=== PATIENT | male | born 1985 | race Two or more races ===

== ENCOUNTER 2023-09-13 09:25 | Outpatient (CLI) | payer OTHER, SELFPAY | END 2023-09-13 09:26 | disposition home or self-care (01) | LOC: ANHSURGERY 09:30 | PROVIDERS: PCP Emergency Medicine; Visit Provider Surgery | DX: K40.90 Unilateral inguinal hernia, without obstruction or gangrene, not specified as recurrent (principal); Z01.818 Encounter for other preprocedural examination | CPT/HCPCS: 36415; 86850; 86900; 86901 ==

== ENCOUNTER 2023-09-21 01:33 | Day surgery (SDC) | payer OTHER, SELFPAY ==
[2023-09-08 17:04] VITALS: BMI 25.5
--- NOTE | 2023-09-08 17:06 | PC.NURSE ---
Report to the Outpatient Waiting Room, entrance under the green pavilion located off [facility], at time _0600_ on date _[id number]_. Planned Procedure Time: _0730_. Time changes happen often and if your time is changed the preop area will call you the afternoon before. - You and your visitor will be asked to self-screen and do not enter if you have any COVID symptoms. - A mask is optional within the hospital at this time. Patients may have clear liquids (water, carbonated beverages, clear teas, apple juice) until 3 hours prior to surgery with a maximum of 20 ounces. - No food from midnight until time of surgery Take the following medications with a SIP of water the morning of surgery: ___None DO NOT STOP ANY OF YOUR OTHER PRESCRIPTION MEDICATIONS PRIOR TO SURGERY ?EXCEPT THE FOLLOWING Medications to discontinue per physician None Date to take last dose Please no make-up, nail nicaraguan, hairspray, perfume, deodorant, or body powder the day of surgery. No jewelry (including any body piercings) or valuables the day of surgery, leave them at home. Please take a shower or bath the night before, or the morning of, surgery with an antibacterial soap. Wear comfortable, loose fitting clothing. - Jewelry must be removed prior to entering the operating room. Rings and piercings that are not removed may be cut off. - The hospital will not accept responsibility for valuables. - Please leave all valuables, including medications, at home the day of surgery. If you are going home after surgery, a licensed bicycle taxi driver must drive you home. - NO public transportation without another adult if you receive anesthesia. - We recommend that an adult stay with you for 24 hours following discharge. - We also recommend that you do not drive, make important decision, drink alcoholic beverages, or take any drugs that were not prescribed by your health care provider for at least 24 hours after your discharge time. Follow any additional instructions given to you from your surgeon. If you or anyone in your household have experienced Covid symptoms in the past week, please notify your surgeon or the nurse liaison at the phone number below for possible testing. Telephone instructions given to _Ryan__and asked if any additional questions and then verbalized understanding. Patient advised to call surgeon office or pre surgery nurse liaison [phone] if any additional questions.
--- NOTE | 2023-09-20 08:41 | PM.SD2 ---
Same Day Admit/Disch: HPI History of Present Illness Chief complaint: Right Ing Hernia Narrative: Petros Braga is a 38 year old male who has had a laparoscopic left inguinal hernia repair years ago. About 2 years ago he started noticing bulge in the right groin. It has gradually gotten bigger and is painful with standing and sometimes with exertion. He was seen in the office and found to have a reducible right inguinal hernia. There was no evidence of a left inguinal hernia. After discussion, he is taken to surgery now for robotic laparoscopic right inguinal hernia repair with mesh. [facility] Past Medical History Medical History Anxiety and depression Surgical History Surgical History Hx of hernia repair laparoscopic left inguinal hernia repair Hx of tonsillectomy Family History Family History Father Thyroid condition Grandparent Hypertension Social History Social History Smoking status: Never smoker Alcohol intake: current Alcohol use details: rarely Living arrangements: with family Occupation/Education: occupation Additional occupation/education comments: Teacher Spiritual care concerns: No Same Day Admit/Disch: Med Pre-admit Medications Home Medications Medication Instructions Recorded Confirmed Type fluticasone propionate 50 1 spray intranasal DAILY 06/30/23 09/08/23 History mcg/actuation nasal spray,suspension loratadine 10 mg tablet (Claritin) 10 mg PO DAILY 06/30/23 09/08/23 History ketorolac 10 mg tablet 10 mg PO Q6H 4 days #16 tabs 09/21/23 Rx oxycodone-acetaminophen 5 mg-325 0.5 - 1 tablet PO Q6H PRN pain #10 09/21/23 Rx mg tablet tabs Review of Systems Review of Systems All systems reviewed & are unremarkable except as noted in HPI and below (HPI) Exam Const: General: comfortable, no acute distress, alert and awake HENMT: Head: normocephalic and atraumatic Mouth: Yes Normal oral and palatal mucosa present Eyes: Conjunctivae: conjunctivae normal Pupils: Equal, round and reactive pupils present EOM: EOMs intact bilaterally Neck: Neck: normal visual inspection, no lymphadenopathy and nontender Resp: Effort & Inspection: normal respiratory effort Auscultation: clear to auscultation bilaterally Cardio: Rate: regular rate Rhythm: regular rhythm Heart sounds: no gallops, no murmurs and no rubs GI: Inspection: non-distended GI Palp: Yes Soft to palpation, No Tenderness to palpation present (GI), No Hepatomegaly present and No Splenomegaly present : Male General Exam: Yes hernia (Right inguinal bulge noted on inspection, pulses with cough, reducible.) Penis: Yes normal penis Scrotum: scrotum normal Testes: Testes normal Skin: Lesions: no lesions Rashes: no rashes Neuro: General: no focal motor deficits and CN's II-XI intact bilaterally Cranial nerves: Yes Equal, round and reactive pupils present, Yes Bilaterally intact EOM present, Yes facial symmetry and Yes Midline tongue present Speech: normal speech Motor exam (neuro): 5/5 motor strength present throughout and Motor abnormalities not present Extrem: General: no clubbing, cyanosis or edema and edema Psych: Affect: normal affect Thought process: Normal thought process present Insight: Good insight present (Psych) DS: Summary Time Spent with Patient Time attestation: Total time spent providing and/or coordinating discharge services: DS: Admitting Diagnosis Discharge Date 09/21/2023 Admitting Diagnosis Right inguinal hernia-reducible and symptomatic. Plan to proceed with robotic laparoscopic right inguinal hernia repair with mesh. The procedure, alternatives, benefits and risks have been discussed. The usual length of recovery has been discussed. All questions were answered
[2023-09-21] VITALS (10 sets, daily range): BP systolic 106–144; BP diastolic 69–88; PULSE 68–100; RESP 12–17; TEMP 36.3; O2SAT 96–99; BMI 25.9
[2023-09-21] MEDS: LACTATED RINGERS 1,000 ML 30 ML IV CONT ×2 (07:40→10:33)
--- NOTE | 2023-09-21 07:47 | P.PNAN_ITS ---
Anes - Initial Pre Proc Eval Procedure: Operation Date: 09/21/23 08:30 Proposed Procedures p Robotic Laparoscopic Right Inguinal Hernia Repair with Mesh - Ronnie Sullivan MD Date/Time: 09/21/23 07:47 Surgeon: Ronnie Sullivan MD Pre Op Diagnosis: Right Ing Hernia Patient Data Age: 38 Gender: M Height: 1.8 m Weight: 83.2 kg Allergies Allergy/AdvReac Type Severity Reaction Status Date / Time No Known Allergies Allergy Verified 09/21/23 07:31 Home Medications Medication Instructions Recorded Confirmed Type fluticasone propionate 50 1 spray intranasal DAILY 06/30/23 09/08/23 History mcg/actuation nasal spray,suspension loratadine 10 mg tablet (Claritin) 10 mg PO DAILY 06/30/23 09/08/23 History Patient hx anesthesia problems: none Family hx anesthesia problems: none Results Review: All pre-operative results and documents have been reviewed as part of the pre- operative evaluation. [facility] Past Medical History Medical History Anxiety and depression Surgical History Surgical History Hx of hernia repair laparoscopic left inguinal hernia repair Hx of tonsillectomy Family History Family History Father Thyroid condition Grandparent Hypertension Social History Social History Smoking status: Never smoker Alcohol intake: current Alcohol use details: rarely Living arrangements: with family Occupation/Education: occupation Additional occupation/education comments: Teacher Spiritual care concerns: No Anes - Eval Final PreProcedure Day of Procedure 09/21/23 07:47 Patient weight: normal Heart: regular rate and rhythm Lungs: clear to auscultation Airway: Mallampati scale class II Neurological: alert and oriented Last oral intake: >/= 8 hours ASA classification: II Emergent: no Anesthetic plan: proceed Anesthesia type and monitoring: general GIVS and standard monitoring Results Review: All pre-operative results and documents have been reviewed as part of the pre- operative evaluation. Informed Consent: The patient's anesthetic plan and its attendant risks and benefits were discussed with the patient/family/POA. Questions were solicited and answers provided to the satisfaction of the patient/family/POA.
[2023-09-21] MEDS: ACETAMINOPHEN 500 MG TABLET 1000 MG PO (07:50)
[2023-09-21] MEDS: KETOROLAC 15 MG/ML VIAL (*BKC) IV PUSH (07:50)
--- NOTE | 2023-09-21 07:52 | WPDHPUPDATE1 ---
History and Physical Update Update Date/Time: 09/21/23 07:52 History and Physical has been reviewed, including an updated exam of the patient. There are NO changes in the patient's condition. Risks, benefits, and alternatives have been discussed and questions answered. Patient agrees to proceed with procedure.
[2023-09-21] MEDS: ceFAZolin 2 GM/D5W 50 ML 2 GM/50 ML BAG IVPB (08:28)
[2023-09-21] MEDS: BUPIVACAINE/EPINEPHRINE 0.5% 30 ML VIAL 20 ML INFILTRATE (09:08)
--- NOTE | 2023-09-21 10:40 | P.OP_ITS ---
Procedure Note - Detailed Date of Procedure 09/21/23 Pre-op Diagnosis Right Ing Hernia Post-op Diagnosis Other (Direct right inguinal hernia) Procedure Performed Robotic laparoscopic repair right inguinal hernia with mesh Surgeon Ronnie Sullivan MD [employer]allurgist Helper Devin [place] Anesthesia General and Local (0.5% Marcaine with epinephrine) Indications Patient noticed a right inguinal bulge which is occasionally painful. He was seen in the office and found to have a reducible right inguinal hernia. He is taken to surgery now for robotic laparoscopic repair with mesh Findings This was a direct inguinal hernia. There was a lipoma in the inguinal canal which was also removed. Description of Procedure Patient was taken to surgery and induced into general anesthesia. The abdomen was prepped and draped. Trocars were placed in the usual fashion using local anesthetic, an initial 5 mm optical trocar and then placing all 3 robotic 8 mm ports. Patient was placed in Trendelenburg and then the robotic arms were brought in place. The camera was docked and targeted. The mesh and suture were then placed near the hernia defect. We then docked the instrument arms and positioned them appropriately. The surgeon then went to the robotic console. A peritoneal flap was developed over the inguinal canal structures. This was started lateral to the rectus muscle and continued over to include some of the median umbilical ligament. The flap was then developed posteriorly in the usual fashion. The pubis and Dario's ligament were exposed. Dissection laterally posterior to the ileo pubic tract was carried out. We dissected across the midline to expose the medial aspect of the left rectus muscle. The transversus was slowly reduced from the hernia and eventually all attachments of the herniated contents to the direct hernia were divided. Some lipomatous tissue in the inguinal canal was then extricated and dissected free from surrounding structures. I then peritonealized the cord structures dissecting the peritoneum at least 4 cm below the lower margin of the internal ring. During this dissection there was some bleeding but eventually it stopped with bipolar cautery. I then brought the mesh into the field and positioned appropriately. A 3-0 Vicryl was then used to suture the mesh to Dario's ligament as well as the anterior abdominal wall both on the medial as well as the lateral aspect of the inferior epigastric vessels. The mesh was in good position and was well position below the peritoneal reflection. I then closed the peritoneal flap with running 3 0 V lock suture. We then removed any residual suture and the needles. All looked good. We then evacuated CO2 and removed the instruments. The robot was undocked and removed from the operative area. The trocars were removed and the skin wounds were closed with subcuticular 4-0 Monocryl skin suture. Patient was awakened and taken to recovery in good condition. Sponge needle counts were correct x2. Implants 17 x 12 cm right mid 3DMax mesh Estimated Blood Loss -5 Drains No Packing No Pathology None sent Complications No immediate complications Condition Stable Disposition PACU [facility] Billing Surgery - Charge Forward: Surgery Billing (Robotic laparoscopic repair right inguinal hernia with mesh)
== END 2023-09-21 13:20 | disposition home or self-care (01) ==
PROVIDERS: PCP Emergency Medicine; Visit Provider Surgery
PROC: 8E0Y4CZ Robotic Assisted Procedure of Lower Extremity, Percutaneous Endoscopic Approach (ICD-10-PCS; CPT 49650; principal; 2023-09-21 08:30)
DX: K40.90 Unilateral inguinal hernia, without obstruction or gangrene, not specified as recurrent (principal); F41.8 Other specified anxiety disorders; Z98.890 Other specified postprocedural states; Z87.19 Personal history of other diseases of the digestive system
CPT/HCPCS: 49650; S2900; 36415; 86850; 86900; 86901; A9270; C1781; J0690; J1100; J1885; J2250; J2371; J2405; J2704; J3010; J7120